=== PATIENT | male | born 1990 | race Caucasian/White ===

== ENCOUNTER 2024-02-18 13:11 | Emergency (ER) | payer MEDICAID ==
[~2024-02-18] VITALS: Ht 172.7 cm; Wt 135.5 kg
[2024-02-18 13:27] VITALS: PULSE 106; RESP 50; O2SAT 100
[2024-02-18] MEDS: IPRATROPIUM BROMIDE 0.5 MG/2.5 ML NEB SOLUTION NEB ONE (13:27)
[2024-02-18] MEDS: ALBUTEROL SULFATE 2.5 MG/0.5 ML NEB SOLUTION NEB ONE (13:27)
[2024-02-18 13:29] VITALS: PULSE 106; RESP 50; O2SAT 100
[2024-02-18 14:21] LABS: BASOPHILS % (AUTO) 0.9 % (0.0-2.0); EOSINOPHILS % (AUTO) 1.2 % (1.0-6.0); HEMATOCRIT 39.3 % (41-53); HEMOGLOBIN 13.3 g/dL (13.5-17.5); LYMPHOCYTES # (AUTO) 1.7 K/uL (1.0-4.8); LYMPHOCYTES % (AUTO) 16.4 % (22.0-44.0); MEAN CORPUSCULAR HEMOGLOBIN 28.5 pg (26.0-34.0); MEAN CORPUSCULAR HGB CONC 33.8 G/dL (31.0-37.0); MEAN CORPUSCULAR VOLUME 84 fL (80-100); MONOCYTES # (AUTO) 0.8 K/uL (0.1-1.0); MONOCYTES % (AUTO) 7.4 % (2.0-9.0); NEUTROPHILS # (AUTO) 7.7 K/uL (1.8-7.7); NEUTROPHILS % (AUTO) 74.1 % (40.0-70.0); PLATELET COUNT (AUTO) 308 K/uL (150-450); RED BLOOD CELL COUNT(AUTO) 4.67 MIL/uL (4.50-5.90); RED CELL DISTRIBUTION WIDTH 13.9 % (11.5-14.5); WHITE BLOOD COUNT (AUTO) 10.3 K/uL (4.5-11.0)
[2024-02-18] MEDS: LORazepam 2 MG/ML VIAL IVP ONE (14:21)
[2024-02-18 14:30] LABS: ANION GAP 13 mmol/L (8-16); CALCIUM, TOTAL 8.8 mg/dL (8.8-10.5); CARBON DIOXIDE 20 mmol/L (22-29); CHLORIDE 104 mmol/L (98-107); CREATININE 0.86 mg/dL (0.60-1.30); GLOMERULAR FILTR. RATE CALC > 60 mL/min (>60); GLUCOSE,RANDOM 202 mg/dL (70-110); POTASSIUM 3.3 mmol/L (3.5-5.1); SODIUM SERUM 137 mmol/L (136-145); UREA NITROGEN, BLOOD 11 mg/dL (7-18)
[2024-02-18 14:37] LABS: TROPONIN I-HIGH SENSITIVITY 4 ng/L (<76)
[2024-02-18 16:55] VITALS: BP 122/63; PULSE 79; RESP 18; O2SAT 100
== END 2024-02-18 17:13 | disposition home or self-care (01) ==
LOC: EMS 13:11
DX: F41.0 Panic disorder [episodic paroxysmal anxiety] (principal); F15.10 Other stimulant abuse, uncomplicated; J45.909 Unspecified asthma, uncomplicated
CPT/HCPCS: 99284; 96374; 71045; 80048; 84484; 85025; 36415; 94640; J2060